=== PATIENT | male | born 1970 | race African-American/Black ===

== ENCOUNTER 2023-02-09 09:25 | Emergency (ER) | payer MEDICAID ==
[~2023-02-09] VITALS: Ht 154.9 cm; Wt 88.4 kg
[2023-02-09 10:21] VITALS: BP 174/78
[2023-02-09] MEDS ORDERED: IBUPROFEN 600MG TABLET PO STA (10:21)
[2023-02-09] MEDS ORDERED: IBUP-2029 PO (10:53)
== END 2023-02-09 12:21 | disposition home or self-care (01) ==
LOC: ER 09:25
DX: S63.502A Unspecified sprain of left wrist, initial encounter (principal); I10 Essential (primary) hypertension; X50.1XXA Overexertion from prolonged static or awkward postures, initial encounter; Y93.89 Activity, other specified; Y92.89 Other specified places as the place of occurrence of the external cause; Y99.8 Other external cause status
CPT/HCPCS: 29125; 73110; 99283